=== PATIENT | female | born 1995 | race Asian ===

== ENCOUNTER 2018-03-11 06:26 | Emergency (ER) | payer OTHER ==
[2018-03-11] MEDS ORDERED: IBUPROFEN 200 MG TAB PO ONE (06:58)
--- NOTE | 2018-03-11 06:58 | EDPHY ---
HPI/HX/ROS/PE/MDM Narrative: CHIEF COMPLAINT: Hands burning from hot peppers HISTORY OF PRESENT ILLNESS: This patient is a Mandarin-speaking 22 year old female who is generally healthy , with history of pituitary microadenoma. Yesterday evening, she was cooking and preparing a hot pepper for the dish. She held the pepper with her left hand while chopping with the right. Shortly after, she developed a burning sensation in both hands, primarily the left. She has tried washing her hands several times without relief. This morning, the burning persists and she presents for evaluation. She denies touching her eyes or any other areas of burning. No recent trauma or illness. No fever, chills, chest pain, shortness of breath, palpitations, vomiting, diarrhea, urinary complaints, headache, lightheadedness. HPI obtained partially through Mandarin livestock farm workers by iPad at bedside. The patient does speak Occitan as well. REVIEW OF SYSTEMS: A comprehensive 10 system review of systems is otherwise negative aside from elements mentioned in the history of present illness and medical decision making. PAST MEDICAL HISTORY: Pituitary microadenoma SOCIAL HISTORY: Mandarin-speaking. Student. Does not abuse tobacco, drugs, or alcohol. VITAL SIGNS: Reviewed by me GENERAL: Well-developed, well-nourished, resting comfortably in no respiratory distress. SKIN: Mild stippling over the dorsal aspect of both hands. Palmar surfaces are unremarkable. Skin is otherwise warm and dry, no rash. No chemical burn noted. Portions of this note were transcribed by a medical or surgical instrument maker. I personally performed a history, physical exam, medical decision making, and confirmed accuracy of information the transcribed note. ED Course: 22 year old female presents with burning irritation to both palmar surfaces secondary to cutting a hot pepper yesterday evening. Exam reveals some minor stippling over the dorsal aspect of both hands. Palms are normal in appearance. Plan to administer 400mg PO ibuprofen for pain relief. Plan to complete a dairy soak for both hands to neutralize capsaicin. Reassessed patient. She feels much better after the milk bath for her hands. Plan to discharge home in good condition. Follow up and return precautions discussed. Recommended use of foodservice gloves when preparing hot peppers. She will use a non-scented lotion as a skin protectant and take ibuprofen or Tylenol as needed for recurrent discomfort. The patient understands and is comfortable with this plan. MDM: Diff dx considered included local edema, chemical burn, allergic reaction, contact dermatitis. - Data Points Medications Given: Discontinued Medications Ibuprofen (Motrin) 400 mg PO EDNOW ONE Stop: 03/11/18 06:59 Last Admin: 03/11/18 07:30 Dose: 400 mg General Time Seen by Provider: 03/11/18 06:57 Initial Vital Signs: Initial Vital Signs Temperature (C) 36.6 C 03/11/18 06:54 Heart Rate 81 03/11/18 06:54 Respiratory Rate 18 03/11/18 06:54 Blood Pressure 131/82 H 03/11/18 06:54 O2 Sat (%) 96 03/11/18 06:54 O2 Delivery Mode Room Air Allergies/Adverse Reactions: No Known Allergies Allergy (Unverified 03/11/18 06:54) Home Medications: Medication Instructions Recorded Bromocriptine Mesylate 03/11/18 Departure - Departure Disposition: Home, Routine, Self-Care Clinical Impression: Skin irritation due to topical agent Condition: Good Instructions: Chemical Skin Burn (ED) Additional Instructions: Please use care when cutting up the peppers in the future. Okay to take Tylenol or ibuprofen if needed for discomfort. Please obtain a non scented hand lotion such as Lubriderm or Cetaphil to use to provide a layer of protection to your hand. Referrals: Keyonna Pyle MD [[facility] Primary Care Provider] - As per Instructions Report Scribed for: Myriam Combs Report Scribed by: Beatriz Garza Date of Report: 03/11/18 Time of Report: 06:58
[2018-03-11 07:48] VITALS: BP 128/78
== END 2018-03-11 08:06 | disposition home or self-care (01) ==
DX: T78.1XXA Other adverse food reactions, not elsewhere classified, initial encounter (principal); D35.2 Benign neoplasm of pituitary gland

== ENCOUNTER 2018-05-31 00:28 | Emergency (ER) | payer OTHER ==
[2018-05-31] MEDS ORDERED: ACETAMINOPHEN 500 MG TAB PO ONE (02:01)
[2018-05-31] MEDS ORDERED: IBUPROFEN 200 MG TAB PO ONE (02:01)
--- NOTE | 2018-05-31 02:19 | EDPHY ---
General - History Smoking Status: Never smoked Time Seen by Provider: 05/31/18 02:12 Narrative: CLINICAL IMPRESSION: RSV ASSESSMENT/PLAN: Patient is a 22-year-old female with a significant medical history of pituitary microadenoma who presents with complaints of runny nose, congestion, cough and headache for the last 3 days. Patient is afebrile, in no acute distress and nontoxic appearing. Her vital signs were reviewed and no findings to suggest sepsis or serious bacterial illness. Laboratory studies were obtained including influenza and RSV, positive for RSV. CXR with no evidence of consolidation or pneumonia. History and physical examination is most consistent with RSV. There is no evidence of significant sinusitis, meningitis, pneumonia or serious bacterial illness. The patient was given Tylenol and ibuprofen with improvement of her symptoms. The patient will continue to be treated symptomatically. On re- examination prior to discharge this patient is stable and well-appearing, she reports that she is feeling much better. Her neurological exam remained grossly normal with no focal deficit. She is a student at the [employer], she does not have a primary care provider, a referral has been given to her. Strict return precautions discussed- the patient will return for significantly worsening symptoms, severe headache, high fevers, neck stiffness, difficulty swallowing, chest pain, shortness of breath, signs of dehydration or for any other concerning symptom. The patient verbalizes understanding and they are in agreement with this plan. DIFFERENTIAL DX: Differential diagnosis including but not limited to and in no particular order meningitis, sinusitis, RSV, influenza, pneumonia, sepsis ED COURSE: 0217: Discussed with Dr. Bowie 0248: On repeat exam the patient is well-appearing, she reports that she is feeling much better. She has no other questions or concerns. CHIEF COMPLAINT: Runny nose, congestion, cough and headache HPI: Patient is a 22-year-old female with a history of a pituitary microadenoma who presents to the emergency department with runny nose, congestion, cough and headache. Patient reports she started to develop a mild headache, runny nose, congestion and cough on Saturday, it worsened on Saturday. She has not tried taking anything for the pain. Her head ache is what is bothering her most however denies it being the worst headache of her life. It has been slow in onset, it was not sudden. She has had similar headaches to this in the past when she has been ill. When her headache is intense she does feel like her vision is a little blurry but denies any vision loss. She denies any focal weakness, numbness or tingling of extremities or ataxia. She denies any nausea or vomiting. Her appetite has been normal. Her cough has been mild and intermittent, nonproductive. She denies any chest pain or shortness of breath. She has had no abdominal pain, urinary symptoms to include dysuria, hematuria or increased frequency. Bowel movements have been regular. PMH: Pituitary microadenoma Family History: Noncontributory Social History: Denies alcohol, denies illicit drug use and denies smoking REVIEW OF SYSTEMS: All other systems negative Constitutional: Has felt chilled, no documented fever. No appetite change. Eyes: No discharge. ENT: Sore throat, runny nose, congestion. Denies ear pain. Cardiovascular: No chest pain, no palpitations. Respiratory: Cough. No shortness of breath. Gastrointestinal: No abdominal pain, no vomiting, diarrhea. Genitourinary: No hematuria, dysuria, flank pain, pelvic pain. Musculoskeletal: No back pain, joint swelling, joint pain, myalgias. Skin: No rashes, color change. Neurological: Headache. No dizziness, weakness. PHYSICAL EXAM: General Appearance: Well-developed, well-appearing and in no acute distress. HENT: Normocephalic, atraumatic. Bilateral external ears are normal. Bilateral tympanic membranes are normal with pearly sierra reflex. External nares are hyperemic and dry. Nares are clear, mucosa is pink, turbinates mildly enlarged. Oropharynx is clear, uvula is midline. There is no tonsillar enlargement or exudate. Her phonation is normal, there is no trismus. The dentition is normal. Eyes: PERRLA, no acute vision change, nystagmus, swelling, discharge, pain or photosensitivity. Conjunctiva pink, no pallor or injection. Neck: Supple, nontender, no lymphadenopathy, no midline pain, FROM, no meningismus. Respiratory: There are no retractions, lungs are clear to auscultation. Cardiac: Regular rate and rhythm, no murmurs or gallops. Gastrointestinal: Abdomen is soft, nontender, bowel sounds normal, no masses/ hernia, no rigidity, guarding or focal peritoneal findings. Neurological: Alert and oriented x 3, CN 2-12 grossly intact, normal gait no ataxia, DTR's intact, normal sensation and strength Skin: Warm, dry, no rashes, no nodules on palpation. Musculoskeletal: Extremities are symmetrical, full range of motion, no tenderness, deformity, swelling, or erythema. Psychiatric: Patient is oriented X 3, there is no agitation. MEDICAL DECISION MAKING: Patient was seen independently. Secondary supervising physician at time of evaluation was Dr. Bowie. Diagnosis: RSV. New, requires workup Summary: See Assessment and Plan for summary of ED visit Clinical lab tests: ordered / reviewed. Independent visualization of images, tracing, or specimens: Yes. Decision to obtain medical records or history from someone other than the patient: No Review / Summarize previous medical records: None available Discussed patient with another provider: Yes, Dr. Bowie Patient Progress: Stable, discharged. (Berta Francisco) PHYSICIAN DOCUMENTATION: The patient was evaluated and managed by the Physician Petrographer. My co- signature indicates that I have reviewed this chart and I agree with the findings and plan of care as documented. I am the secondary supervising physician. (Bebe Bowie) - Objective Vital Signs: Initial Vital Signs Temperature (C) 37.2 C 05/31/18 00:49 Heart Rate 90 05/31/18 00:49 Respiratory Rate 18 05/31/18 00:49 Blood Pressure 131/81 H 05/31/18 00:49 O2 Sat (%) 91 L 05/31/18 00:49 O2 Delivery Mode Room Air Allergies/Adverse Reactions: Penicillins Allergy (Mild, Verified 05/31/18 00:49) Home Medications: Medication Instructions Recorded Bromocriptine Mesylate 03/11/18 Laboratory Results: 05/31/18 01:00 Nasal Influenza A PCR NEGATIVE FOR FLU A (NEGATIVE) Nasal Influenza B PCR NEGATIVE FOR FLU B (NEGATIVE) RSV (PCR) RSV DETECTED H (NEGATIVE) Medications Given: Discontinued Medications Acetaminophen (Tylenol) 500 mg PO EDNOW ONE Stop: 05/31/18 02:02 Last Admin: 05/31/18 02:07 Dose: 500 mg Ibuprofen (Motrin) 400 mg PO EDNOW ONE Stop: 05/31/18 02:02 Last Admin: 05/31/18 02:08 Dose: 400 mg Departure - Departure Disposition: Home, Routine, Self-Care Clinical Impression: RSV infection Condition: Good Instructions: Respiratory Syncytial Virus (ED) Additional Instructions: DISCHARGE INSTRUCTIONS FROM YOUR DOCTOR Thank you for visiting our emergency department today. Please keep in mind that discharge from the emergency department does not mean that there is nothing wrong - it simply means that we have not identified an emergency condition that requires further evaluation or treatment in the hospital. You should always plan to follow up with primary care for re-evaluation of your condition in the next 2-3 days. Rest, push non-diuretic, non-caffeinated fluids, consume a healthy diet, all to help support your immune system fight infection. Consider running a coolmist humidifier in the bedroom. Consider warm salt water gargles for sore throat. Consider over the counter saline nasal washes ie: Neilmed sinus rinse, [place] or [place]. Consider over the counter Mucinex for congestion and/or cough as directed. For pain control: You may take Tylenol, I recommend 500-1000 mg every 6-8 hours as needed. Take with food and a full glass of water. Stop taking if this is upsetting her stomach. Do not exceed 4000 mg in a 24 hr period. You may also take ibuprofen, recommend 400 mg every 6 hr. Take with food and a full glass of water. Stop taking if this upsets her stomach. Do not exceed 2400 mg in a 24 hr period. As discussed, in the setting of a viral illness, you may develop a secondary bacterial infection, requiring an antibiotic. Watch for new or changing symptoms ie: new ear pain or drainage, increasing cough, shortness of breath, high fever, or any other concerning symptoms. Schedule a follow-up appointment with your primary care physician in the next 2- 3 days for re-evaluation, sooner for any new concerns. Please see referral or follow-up the [facility]. Return for high fever, shaking chills, severe headache, facial redness or swelling, drainage from your ears, difficulty breathing or swallowing, throat tightness, drooling, change in voice, inability to open your mouth normally, severe neck pain, neck stiffness, shortness of breath, wheezing, noisy breathing , coughing up blood, chest pain, vomiting, diarrhea, bloody stools, decreased urine output or other concerns for dehydration, bloody urine, rash, dizziness, weakness, fainting, or for any other new, worsening or worrisome symptoms. People present with illnesses and injuries in different ways, and it is always possible that we have missed something. You may always return for re-evaluation if symptoms worsen or if they are not improving or if you develop new/different symptoms. Again, thank you for choosing our emergency department. We hope that you feel better. Referrals: NONE *PRIMARY CARE P,. [Primary Care Provider] - 2-3 days without fail ( [place]) Sonido Botello MD [Medical Doctor] - 2-3 days, if not improved (This is a referral for a primary care doctor for you to establish care with)
[2018-05-31 02:24] VITALS: BP 114/81
== END 2018-05-31 03:14 | disposition home or self-care (01) ==
DX: B97.4 Respiratory syncytial virus as the cause of diseases classified elsewhere (principal); Z88.0 Allergy status to penicillin